=== PATIENT | female | born 1970 | race Caucasian/White ===

== ENCOUNTER 2021-12-30 12:44 | Emergency (ER) | payer MEDICAID ==
[~2021-12-30] VITALS: Ht 167.6 cm; Wt 96.0 kg
[2021-12-30] MEDS ORDERED: FAMOTIDINE 20MG/2ML VIAL IV STA (13:24)
[2021-12-30] MEDS ORDERED: ONDANSETRON HCL 4MG/2ML INJ IV STA (13:24)
[2021-12-30] MEDS ORDERED: MORPHINE SULFATE 4 MG/ML CPJ (NOT FOR IM USE) IV STA (13:24)
[2021-12-30] MEDS ORDERED: SODIUM CHLORIDE 0.9% 1,000 ML IV ONE (13:30)
[2021-12-30 16:30] LABS: BASOPHILS % 0.2 % (0.0-2.0); EOSINOPHILS % 0.1 % (0.0-5.0); HEMATOCRIT. 39.9 % (36.0-48.0); HEMOGLOBIN. 12.8 g/dL (12.0-16.0); LYMPHOCYTES % 10.3 % (20.0-50.0); MEAN CORPUSCULAR HEMOGLOBIN 25.7 pg (28.0-32.0); MEAN CORPUSCULAR VOLUME 80.1 fL (81.0-99.0); MEAN PLATELET VOLUME 9.2 fl (7.4-10.4); NEUTROPHILS % 79.4 % (40.0-76.0); PLATELET 378 x1000/uL (130-400); RED BLOOD CELL COUNT 4.99 mill/uL (4.2-5.4); RED CELL DISTRIBUTION WIDTH 14.9 % (11.6-14.6)
[2021-12-30 16:43] LABS: CHLORIDE 107 mEq/L (98-107)
[2021-12-30] MEDS ORDERED: ONDANSETRON HCL 4MG/2ML INJ IV SCH (21:30)
[2021-12-30] MEDS ORDERED: FAMOTIDINE 20MG/2ML VIAL IV SCH (21:45)
[2021-12-30] MEDS ORDERED: MORPHINE SULFATE 4 MG/ML CPJ (NOT FOR IM USE) IV SCH (21:45)
[2021-12-30] MEDS ORDERED: ONDA4TAB11 PO (22:07)
[2021-12-30] MEDS ORDERED: FAMO-135 MT (22:07)
[2021-12-30 23:00] VITALS: BP 132/89
== END 2021-12-30 23:25 | disposition home or self-care (01) ==
LOC: ER 13:04
DX: K52.9 Noninfective gastroenteritis and colitis, unspecified (principal)
CPT/HCPCS: 36415; 74176; 76705; 80053; 83690; 85025; 93005; 96374; 96375; 99285; J2270; J2405; J3490; J7030

== ENCOUNTER 2022-01-01 06:54 | Emergency (ER) | payer MEDICAID ==
[~2022-01-01] VITALS: Ht 152.4 cm; Wt 90.2 kg
[~2022-01-01 06:54] MED LIST: FAMO-135 MT; ONDA4TAB11 PO
[2022-01-01] MEDS ORDERED: SODIUM CHLORIDE 0.9% 1,000 ML IV ONE (07:45)
[2022-01-01] MEDS ORDERED: ONDANSETRON HCL 4MG/2ML INJ IV STA (07:45)
[2022-01-01 08:09] LABS: EOSINOPHILS % 2.9 % (0.0-5.0); HEMATOCRIT. 34.1 % (36.0-48.0); HEMOGLOBIN. 11.3 g/dL (12.0-16.0); MEAN CORPUSCULAR HEMOGLOBIN 26.1 pg (28.0-32.0); MEAN CORPUSCULAR VOLUME 78.8 fL (81.0-99.0); MEAN PLATELET VOLUME 8.7 fl (7.4-10.4); MONOCYTES % 11.2 % (2.0-8.0); NEUTROPHILS % 55.9 % (40.0-76.0); PLATELET 289 x1000/uL (130-400); RED BLOOD CELL COUNT 4.32 mill/uL (4.2-5.4); RED CELL DISTRIBUTION WIDTH 14.4 % (11.6-14.6)
[2022-01-01 08:14] LABS: CHLORIDE 110 mEq/L (98-107)
[2022-01-01] MEDS ORDERED: ONDA4TAB50 PO (09:26)
[2022-01-01] MEDS ORDERED: TOPUD PO (09:26)
[2022-01-01 09:51] VITALS: BP 139/62
== END 2022-01-01 09:53 | disposition home or self-care (01) ==
LOC: ER 07:11
DX: K80.20 Calculus of gallbladder without cholecystitis without obstruction (principal); Z87.442 Personal history of urinary calculi; Z90.710 Acquired absence of both cervix and uterus
CPT/HCPCS: 36415; 76705; 80053; 83690; 85025; 96361; 96374; 99284; J2405; J7030; 81003